=== PATIENT | female | born 1980 | race Two or more races ===

== ENCOUNTER 2020-05-08 03:26 | Observation (INO) | payer OTHER ==
[2020-05-08 04:03] VITALS: BP 116/67
[2020-05-08] MEDS ORDERED: PREN-217 PO (10:58)
== END 2020-05-08 05:15 | disposition home or self-care (01) ==
LOC: 4S 03:26
PROVIDERS: ADMIT Obstetrics & Gynecology; ATTEND Obstetrics & Gynecology
DX: O42.92 Full-term premature rupture of membranes, unspecified as to length of time between rupture and onset of labor (principal); Z3A.39 39 weeks gestation of pregnancy
CPT/HCPCS: 36415; 59025; 81001; 89060; G0378

== ENCOUNTER 2020-05-08 10:55 | Inpatient (IN) | payer OTHER ==
[~2020-05-08] VITALS: Ht 162.6 cm; Wt 85.3 kg
[2020-05-08] MEDS ORDERED: RINGERS SOLUTION,LACTATED 1,000 ML IV PRN (10:58)
[2020-05-08] MEDS ORDERED: PREN-217 PO (10:58)
[2020-05-08] MEDS ORDERED: OXYTOCIN 30 UNITS/LACT RINGERS 500 ML IV ONE (10:58)
[2020-05-08] MEDS ORDERED: CARBOPROST TROMETHAMINE 250 MCG/ML AMP IM PRN (11:00)
[2020-05-08] MEDS ORDERED: CITRIC ACID/SODIUM CITRATE 30 ML SOLUTION UDCUP PO PRN (11:00)
[2020-05-08] MEDS ORDERED: AMPICILLIN SODIUM 2 GM/NS 100 ML IV ONE (11:00)
[2020-05-08] MEDS ORDERED: METHYLERGONOVINE MALEATE 0.2 MG/ML VIAL IM PRN (11:00)
[2020-05-08] MEDS ORDERED: LIDOCAINE/PF 1% 30 ML VIAL INJ PRN (11:00)
[2020-05-08] MEDS ORDERED: METOCLOPRAMIDE HCL 5 MG/ML 2 ML VIAL IVP PRN (11:00)
[2020-05-08] MEDS ORDERED: MISOPROSTOL 50 MCG TABLET PO SCH (11:15)
[2020-05-08] MEDS ORDERED: MISOPROSTOL 25 MCG TABLET VG SCH ×2 (11:15→20:30)
[2020-05-08 11:52] VITALS: BP 110/69
[2020-05-08] MEDS: RINGERS SOLUTION,LACTATED 1,000 ML IV SCH ×2 (12:05→12:11)
[2020-05-08 12:10] LABS: BASOPHILS % (AUTO) 0.3 % (0.0-2.0); EOSINOPHILS % (AUTO) 1.6 % (1.0-6.0); HEMATOCRIT 38.5 % (36-46); LYMPHOCYTES # (AUTO) 1.2 K/uL (1.0-4.8); LYMPHOCYTES % (AUTO) 9.4 % (22.0-44.0); MEAN CORPUSCULAR HEMOGLOBIN 29.8 pg (26.0-34.0); MEAN CORPUSCULAR HGB CONC 33.7 G/dL (31.0-37.0); MEAN CORPUSCULAR VOLUME 88 fL (80-100); MONOCYTES # (AUTO) 0.9 K/uL (0.1-1.0); NEUTROPHILS # (AUTO) 10.3 K/uL (1.8-7.7); NEUTROPHILS % (AUTO) 81.7 % (40.0-70.0); PLATELET COUNT (AUTO) 200 K/uL (150-450); RED BLOOD CELL COUNT(AUTO) 4.36 MIL/uL (4.00-5.20); RED CELL DISTRIBUTION WIDTH 14.3 % (11.5-14.5)
[2020-05-08] MEDS: AMPICILLIN SODIUM 1 GM/NS 50 ML IV SCH ×3 (15:49→23:07)
[2020-05-08] MEDS ORDERED: OXYGEN THERAPY IH SCH (20:00)
[2020-05-08] MEDS ORDERED: OXYTOCIN 30 UNITS/LACT RINGERS 500 ML IV PRN (23:04)
[2020-05-09] MEDS: FentaNYL CITRATE-PF 100 MCG/2 ML VIAL IVP PRN ×3 (00:37→06:57)
[2020-05-09] MEDS ORDERED: ROPIVACAINE HCL/PF 0.2% 100 ML ED ONE (01:49)
[2020-05-09] MEDS ORDERED: ONDANSETRON HCL 4 MG/2 ML VIAL IVP PRN (02:15)
[2020-05-09] MEDS ORDERED: ROPIVACAINE HCL/PF 0.2% 100 ML ED PRN (02:15)
[2020-05-09] MEDS ORDERED: DiphenhydrAMINE HCL 50 MG/ML VIAL IVP PRN (02:15)
[2020-05-09] MEDS: AMPICILLIN SODIUM 1 GM/NS 50 ML IV SCH (03:03)
[2020-05-09] MEDS: RINGERS SOLUTION,LACTATED 1,000 ML IV SCH (04:27)
[2020-05-09] MEDS ORDERED: OXYTOCIN 20 UNITS/LACT RINGERS 1,000 ML IV SCH (06:55)
[2020-05-09] MEDS ORDERED: MAGNESIUM HYDROXIDE SUSPENSION 30 ML UDCUP PO PRN (07:00)
[2020-05-09] MEDS ORDERED: IBUPROFEN 600 MG TABLET PO PRN (07:00)
[2020-05-09] MEDS ORDERED: BENZOCAINE 20%/MENTHOL 56 GM SPRAY CANISTER TP PRN (07:00)
[2020-05-09] MEDS ORDERED: MEASLES/MUMPS/RUBELLA VACCINE, LIVE 0.5 ML/VIAL SQ ONE (07:00)
[2020-05-09] MEDS ORDERED: ACETAMINOPHEN/CODEINE 300-30 MG TABLET PO PRN (07:00)
[2020-05-09] MEDS ORDERED: SENNA/DOCUSATE SODIUM 8.6-50 MG TABLET PO PRN (07:00)
[2020-05-09] MEDS ORDERED: LANOLIN 7 GM OINTMENT TP PRN (07:00)
[2020-05-09] MEDS ORDERED: GLYCERIN/WITCH HAZEL LEAF 40 PADS JAR TP PRN (07:00)
[2020-05-09] MEDS ORDERED: LIDOCAINE/PF 1% 30 ML VIAL INJ ONE (07:30)
[2020-05-10 07:26] LABS: BASOPHILS % (AUTO) 0.6 % (0.0-2.0); EOSINOPHILS % (AUTO) 3.2 % (1.0-6.0); HEMATOCRIT 35.4 % (36-46); HEMOGLOBIN 11.9 g/dL (12.0-16.0); LYMPHOCYTES # (AUTO) 1.7 K/uL (1.0-4.8); MEAN CORPUSCULAR HEMOGLOBIN 30.1 pg (26.0-34.0); MEAN CORPUSCULAR HGB CONC 33.7 G/dL (31.0-37.0); MEAN CORPUSCULAR VOLUME 89 fL (80-100); MONOCYTES # (AUTO) 0.9 K/uL (0.1-1.0); MONOCYTES % (AUTO) 7.9 % (2.0-9.0); NEUTROPHILS # (AUTO) 8.4 K/uL (1.8-7.7); NEUTROPHILS % (AUTO) 73.3 % (40.0-70.0); PLATELET COUNT (AUTO)-OB 179 K/uL (150-450); RED BLOOD CELL COUNT(AUTO) 3.96 MIL/uL (4.00-5.20); RED CELL DISTRIBUTION WIDTH 14.3 % (11.5-14.5)
[2020-05-10] MEDS ORDERED: IBUP-2070 PO (09:26)
== END 2020-05-10 12:40 | disposition home or self-care (01) | DRG 807 ==
LOC: OBSVTOIN 10:55 → 4S 10:55
PROVIDERS: ADMIT Obstetrics & Gynecology; ATTEND Obstetrics & Gynecology
PROC: 10E0XZZ Delivery of Products of Conception, External Approach (ICD-10-PCS; principal; 2020-05-09)
PROC: 0KQM0ZZ Repair Perineum Muscle, Open Approach (ICD-10-PCS; 2020-05-09)
PROC: 3E0R3BZ Introduction of Anesthetic Agent into Spinal Canal, Percutaneous Approach (ICD-10-PCS; 2020-05-09)
PROC: 00HU33Z Insertion of Infusion Device into Spinal Canal, Percutaneous Approach (ICD-10-PCS; 2020-05-09)
DX: O77.0 Labor and delivery complicated by meconium in amniotic fluid (principal); Z37.0 Single live birth; O70.1 Second degree perineal laceration during delivery; Z3A.39 39 weeks gestation of pregnancy
CPT/HCPCS: 86592; 86762; 86850; 86900; 86901; 87340; J0290; J2590; J2795; J3010; J3490; J7120